=== PATIENT | female | born 1995 | race Hispanic/Latino ===

== ENCOUNTER 2016-10-11 16:32 | Emergency (ER) | payer SELFPAY ==
[~2016-10-11] VITALS: Ht 157.5 cm; Wt 98.9 kg
[~2016-10-11 16:32] MED LIST: BACTRIM,SEPT1 TABLET PO
[2016-10-11 17:15] LABS: HEMATOCRIT 42.6 % (36.0-46.0); MCH 29.4 PG (29.0-34.0); MCHC 32.9 G/DL (30.0-36.0); MCV 89.5 FL (83-99); MEAN PLAT.VOLUME 11.1 uM^3 (9.5-12.4); PLATELET COUNT 262 K/uL (156-360); RBC DIS.WIDTH-CV 13.9 % (11.8-14.6); RBC DIS.WIDTH-SD 45.7 % (39-53); RED BLOOD COUNT 4.76 M/uL (3.80-5.20); WHITE BLOOD COUNT 7.2 K/uL (4.1-10.2)
[2016-10-11 17:28] LABS: CHLORIDE 105 mEq/L (99-109); POTASSIUM 3.8 mEq/L (3.7-5.4); SODIUM 138 mEq/L (136-147)
[2016-10-11 17:30] LABS: GLUCOSE 105 mg/dL (70-99)
[2016-10-11 17:31] LABS: ANION GAP 13 MEQ/L (2-14)
[2016-10-11 17:32] LABS: TOTAL BILIRUBIN 0.4 mg/dL (0.0-1.0)
[2016-10-11 17:34] LABS: ALKALINE PHOSPHATASE 46 IU/L (3-129); GFR ESTIMATE (CALCULATED) > 59 mL/min/
[2016-10-11 17:35] LABS: UREA NITROGEN (BUN) 11 mg/dL (9-23)
[2016-10-11 17:43] LABS: QUANTITATIVE HCG < 4.0 MIU/ML
[2016-10-11] MEDS ORDERED: FIORICET 50-301 EACH PO (19:48)
[2016-10-11] MEDS ORDERED: MEDROL DOSEPAK4 MG PO (19:48)
[2016-10-11 20:13] VITALS: BP 128/88
[2016-10-12 11:45] LABS: LYME DISEASE SEROLOGY SCREEN NEGATIVE (NEGATIVE)
== END 2016-10-11 20:38 | disposition home or self-care (01) ==
LOC: EME 16:32
PROVIDERS: Physician Assistant
DX: R51 Headache (principal); R20.2 Paresthesia of skin
CPT/HCPCS: 70450; 70496; 70498; 80053; 84702; 85027; 86618; 93005; 99281; 99285; J1885; J7030

== ENCOUNTER 2016-10-22 16:10 | Emergency (ER) | payer SELFPAY ==
[~2016-10-22] VITALS: Ht 157.5 cm; Wt 97.7 kg
[~2016-10-22 16:10] MED LIST changes: +FIORICET 50-301 EACH PO; +MEDROL DOSEPAK4 MG PO
[2016-10-22 19:46] LABS: INTERNAL CONTROL VALID? YES; MONOSPOT (MONONUCLEOSIS SEROL) NEGATIVE
[2016-10-22 21:01] LABS: INFLUENZA A VIRAL ANTIGEN NEGATIVE; INFLUENZA B VIRAL ANTIGEN NEGATIVE
[2016-10-22 21:30] VITALS: BP 122/78
== END 2016-10-22 21:39 | disposition home or self-care (01) ==
LOC: EME 16:10
PROVIDERS: Physician Assistant
DX: B34.9 Viral infection, unspecified (principal); R22.1 Localized swelling, mass and lump, neck; J02.9 Acute pharyngitis, unspecified; H92.02 Otalgia, left ear; M79.1 Myalgia; R50.9 Fever, unspecified
CPT/HCPCS: 86308; 87502; 87651 90; 99281; 99284

== ENCOUNTER 2017-01-08 06:54 | Emergency (ER) | payer SELFPAY ==
[~2017-01-08] VITALS: Ht 157.5 cm; Wt 98.5 kg
[2017-01-08 07:01] VITALS: BP 108/81
[2017-01-08] MEDS ORDERED: NAPROXEN500 MG PO (07:11)
== END 2017-01-08 07:27 | disposition home or self-care (01) ==
LOC: EME 06:54
DX: J02.0 Streptococcal pharyngitis (principal)
CPT/HCPCS: 99281; 99284; J0561; J1100